=== PATIENT | female | born 1955 | race Caucasian/White ===

== ENCOUNTER 2017-01-02 17:42 | Emergency (ER) | payer BC ==
[2017-01-02 17:54] VITALS: BP 120/67
--- NOTE | 2017-01-02 18:16 | UC ---
Skin Complaint HPI - HPI Summary HPI Summary: Tick attached to back right side nap of neck---unsure how long it was attached but she removed it this morning - History of Current Complaint Chief Complaint: UCSkin Time Seen by Provider: 01/02/17 17:59 Stated Complaint: TICK Hx Obtained From: Patient Hx Last Menstrual Period: n/a ?: No Onset/Duration: Sudden Onset, Lasting Hours Timing: Constant Onset Severity: Mild Current Severity: None Pain Intensity: 0 Pain Scale Used: 0-10 Numeric Location: Discrete Aggravating: Nothing Alleviating: Nothing Associated Signs & Symptoms: Positive: Negative Related History: Insect Bite/Sting - tick right back side of neck - Allergy/Home Medications Allergies/Adverse Reactions: Allergies Allergy/AdvReac Type Severity Reaction Status Date / Time No Known Allergies Allergy Verified 01/02/17 17:54 Review of Systems Constitutional: Negative Skin: Negative - that is now removed, Other Eyes: Negative ENT: Negative Respiratory: Negative Cardiovascular: Negative Gastrointestinal: Negative Genitourinary: Negative Motor: Negative Neurovascular: Negative Musculoskeletal: Negative Neurological: Negative Psychological: Negative All Other Systems Reviewed And Are Negative: Yes PMH/Surg Hx/FS Hx/Imm Hx Previously Healthy: Yes - Surgical History Surgical History: Yes Surgery Procedure, Year, and Place: - Family History Known Family History: Positive: None Family History: no reported cardiovascular issues in family lineage - Social History Occupation: Employed Full-time Lives: With Family Alcohol Use: Rare Substance Use Type: None Smoking Status (MU): Heavy Every Day Tobacco Smoker Amount Used/How Often: 2 packs per week Have You Smoked in the Last Year: Yes Cessation Counseling: Patient Advised to Stop Physical Exam Triage Information Reviewed: Yes Appearance: Well-Appearing, No Pain Distress, Well-Nourished Vital Signs: Initial Vital Signs Temp 98.2 F 01/02/17 17:48 Pulse 75 01/02/17 17:48 Resp 16 01/02/17 17:48 BP 120/67 01/02/17 17:48 Pulse Ox 100 01/02/17 17:48 Vital Signs Reviewed: Yes Eye Exam: Normal Eyes: Positive: Conjunctiva Clear ENT Exam: Normal ENT: Positive: Normal ENT inspection, Hearing grossly normal. Negative: Nasal congestion, Nasal drainage, Trismus, Muffled/hoarse voice Dental Exam: Normal Neck exam: Normal Neck: Positive: Supple, Nontender, No Lymphadenopathy Respiratory Exam: Normal Respiratory: Positive: Chest non-tender, Lungs clear, Normal breath sounds, No respiratory distress, No accessory muscle use Cardiovascular Exam: Normal Cardiovascular: Positive: RRR, No Murmur, Pulses Normal, Brisk Capillary Refill Musculoskeletal Exam: Normal Musculoskeletal: Positive: Strength Intact, ROM Intact, No Edema Neurological Exam: Normal Neurological: Positive: Alert, Muscle Tone Normal Psychological Exam: Normal Skin Exam: Normal Course/Dx - Course Course Of Treatment: Doxycycline times one dose---observe for s/s Lyme follow with pcp - Differential Diagnoses - Skin Complaint Differential Diagnoses: Abscess, Systemic Illness, Tick Born Illness, Tinea - Diagnoses Provider Diagnoses: Tick Exposure Lyme PEP Discharge - Discharge Plan Condition: Stable Disposition: HOME Prescriptions: DOXYcycline CAP(*) [DOXYcycline 100MG CAP(*)] 200 mg PO ONCE #2 cap Patient Education Materials: Lyme Disease (ED) Referrals: Carlos Guan MD [Primary Care Provider] - If Needed
== END 2017-01-02 18:22 | disposition home or self-care (01) ==
LOC: UCCORT 17:42
DX: S10.96XA Insect bite of unspecified part of neck, initial encounter (principal); W57.XXXA Bitten or stung by nonvenomous insect and other nonvenomous arthropods, initial encounter
CPT/HCPCS: 99202; G0463

== ENCOUNTER 2018-01-07 17:49 | Emergency (ER) | payer BC ==
[2018-01-07 18:15] VITALS: BP 103/57
--- NOTE | 2018-01-07 18:35 | UC ---
Eye Complaint HPI - HPI Summary HPI Summary: 62yo F states she was on a riding mower two days ago and a juniper branch swung back and hit her in the right eye as she was mowing, and a small part of the branch was stuck in her eye and she had to remove it. Pt was able to keep on mowing and her vision was not diminished. She did not note any blood at any time and pain was noticeable, but not enough to stop her. Pt presents today because she did not want to wait two more days to get it checked, and states the right eye nasal conjunctiva has gotten more red each day. No drainage. No pain with eye movement. Pt wears glasses only for reading. Pt is established pt with Dr. Valdez. No hx glaucoma. Pt has used visine with some relief. No fever. - History of Current Complaint Chief Complaint: UCEye Stated Complaint: RIGHT EYE COMPLAINT Time Seen by Provider: 01/07/18 18:33 Hx Obtained From: Patient Hx Last Menstrual Period: n/a Onset/Duration: Sudden Onset, Lasting Days - 2 Timing: Constant Severity Initially: Moderate Severity Currently: Moderate Pain Intensity: 5 Pain Scale Used: 0-10 Numeric Location of Injury: Conjunctiva Character: Sharp Aggravating Factor(s): Light Alleviating Factor(s): Nothing Associated Signs And Symptoms: Positive: Photophobia. Negative: Drainage (Clear ), Drainage (Purulent), Vision Impairment Bilateral, Vision Impairment Right, Vision Impairment Left, Fever, Swelling Related History: Trauma - injury from juniper branch while mowing - Risk Factors Penetrating Injury Risk Factor: Negative Acute Glaucoma Risk Factors: Negative - Allergies/Home Medications Allergies/Adverse Reactions: Allergies Allergy/AdvReac Type Severity Reaction Status Date / Time No Known Allergies Allergy Verified 01/07/18 18:07 Home Medications: Home Medications Pediatric Multivitamin No.101 [Gummy] 1 each PO DAILY 01/07/18 [History Confirmed 01/07/18] Phenylephrine/Dm/Acetaminop/GG [Tylenol Cold-Flu Severe Caplet] 1 each PO Q4H PRN 01/07/18 [History Confirmed 01/07/18] PMH/Surg Hx/FS Hx/Imm Hx - Additional Past Medical History Additional PMH: Past Medical History: negative Previously Healthy: Yes - Surgical History Surgical History: Yes Surgery Procedure, Year, and Place: - Family History Known Family History: Positive: Other Family History: no reported cardiovascular issues in family lineage; no hx glaucoma - Social History Alcohol Use: Rare Substance Use Type: None Smoking Status (MU): Heavy Every Day Tobacco Smoker Type: Cigarettes Amount Used/How Often: 7 CIGS PER DAY Length of Time of Smoking/Using Tobacco: 50 YRS Have You Smoked in the Last Year: Yes Review of Systems Constitutional: Negative Skin: Rash Eyes: Eye Redness ENT: Negative Respiratory: Negative Cardiovascular: Negative Motor: Negative Neurovascular: Negative Musculoskeletal: Negative Neurological: Negative Psychological: Negative Is Patient Immunocompromised?: No All Other Systems Reviewed And Are Negative: Yes Physical Exam Triage Information Reviewed: Yes Appearance: Well-Appearing, Well-Nourished, Pain Distress - mild Vital Signs: Initial Vital Signs Temp 99.2 F 01/07/18 18:09 Pulse 79 01/07/18 18:09 Resp 15 01/07/18 18:09 BP 103/57 01/07/18 18:09 Pulse Ox 100 01/07/18 18:09 Vital Signs Reviewed: Yes Eyes: Positive: Conjunctiva Inflamed - right nasal aspect, Other: - PERRL, EOMI. Tetracaine 2 drops instilled, fluorescein stain, corneal abrasion pinpoint in nasal aspect conjunctiva and minimal abrasion 1cm inferior to iris, pressures equal by palpation. Lids everted and swiped, no FB noted ENT: Positive: Normal ENT inspection Neck: Positive: Supple Respiratory: Positive: No respiratory distress Cardiovascular: Positive: RRR, Pulses Normal, Brisk Capillary Refill Musculoskeletal: Positive: Strength Intact, ROM Intact Neurological: Positive: Alert, Muscle Tone Normal Psychological Exam: Normal Skin Exam: Normal Eye Complaint Course/Dx - Course Course Of Treatment: VA noted intact. Fluorescein stain shows 2 small corneal abrasions, no FB, no evidence of decreased or increase eye pressure by palpation. Tobramycin 0.3% 2 gtts right eye applied and dispensed for home use. - Differential Dx/Diagnosis Differential Diagnosis/HQI/PQRI: Conjunctivitis, Corneal Abrasion, Foreign Body , Glaucoma, Penetrating Injury Provider Diagnoses: corneal abrasions right eye Discharge - Sign-Out/Discharge Documenting (check all that apply): Discharge/Admit/Transfer - Discharge Plan Condition: Stable Disposition: HOME Prescriptions: Tobramycin 0.3% OPHTH.[email or web address]* 2 drop RIGHT EYE Q4H #1 btl Patient Education Materials: Corneal Abrasion (ED) Referrals: Brianne Meade MD [Medical Doctor] - 2 Days (definite follow up with Dr. Meade, established patient. ) Carlos Guan MD [Primary Care Provider] - Additional Instructions: Your visual acuity was 20/25 in both eyes, 20/20 in the right eye (the affected eye) and 20/25 in the left eye. Dr. Henry did not find any foreign body, or any evidence of perforation of your eye by the juniper branch. She did note two small corneal abrasions in the red area by your nose, and inferior to the iris of your eye on the right. The pressures felt equal by palpation, although we did not have a slit lamp or a tonopen to examine your eyes. We did use a magnified light and fluorescein strip with tetracaine to examine your right eye. We prescribed and gave the first dose of tobramycin 0.3% that you should use: 2 drops every 4 hours while awake for 7 days. Return to urgent care if any new or worsening symptoms. - Billing Disposition and Condition Condition: STABLE Disposition: HOME
[2018-01-07] MEDS ORDERED: Tetracaine 0.5% OPTH.SOL 4 ML* 1 DROP BTL RIGHT EYE ONE (18:38)
[2018-01-07] MEDS ORDERED: Fluorescein Sod TOPICAL 0.6* 0.6 MG TEST OPHTHALMIC ONE ×2 (18:38→18:39)
[2018-01-07] MEDS ORDERED: Tetracaine 0.5% OPTH.SOL 4 ML* 1 DROP BTL ONE (18:39)
[2018-01-07] MEDS ORDERED: BSS OPTH.SOL* BTL ONE (18:39)
[2018-01-07] MEDS ORDERED: Eye Irrigation Solution 30 ML BOTTLE RIGHT EYE ONE (18:39)
[2018-01-07] MEDS ORDERED: Tobramycin 0.3% OPHTH.SOL* 5 ML BOT (regular eye drops) RIGHT EYE ONE (18:55)
== END 2018-01-07 19:22 | disposition home or self-care (01) ==
LOC: UCCORT 17:49
DX: S05.01XA Injury of conjunctiva and corneal abrasion without foreign body, right eye, initial encounter (principal); W22.8XXA Striking against or struck by other objects, initial encounter; Y93.89 Activity, other specified; F17.210 Nicotine dependence, cigarettes, uncomplicated
CPT/HCPCS: 99213; A9270-GY; G0463